=== PATIENT | male | born 1955 | race Caucasian/White ===

== ENCOUNTER 2018-10-11 17:04 | Inpatient (IN) | payer OTHER ==
--- NOTE | 2018-10-11 19:22 | CT ---
EXAMINATION TYPE: CT brain wo con DATE OF EXAM: 10/11/2018 COMPARISON: None HISTORY: right sided facial weakness, numbness CT DLP: 1150.4 mGycm Automated exposure control for dose reduction was used. FINDINGS: There is patchy hypodensity in the periventricular white matter. There is no mass effect nor midline shift. There is no sign of intracranial hemorrhage. There is mild cerebral atrophy. IMPRESSION: MILD ATROPHY AND CHRONIC WHITE MATTER CHANGES. NO ACUTE INTRACRANIAL ABNORMALITY.
--- NOTE | 2018-10-11 19:30 | ED ---
General Adult HPI - General Chief complaint: Neuro Symptoms/Deficit Stated complaint: Numbness in face Time Seen by Provider: 10/11/18 18:43 Source: patient Mode of arrival: ambulatory Limitations: no limitations - History of Present Illness Initial comments: This a 63-year-old male with past medical history of hyperlipidemia presenting today for chief complaint of right-sided facial weakness and droop. She states that yesterday morning around 9 AM he woke up and noticed that he was not able to tightly close his right eye and noticed to cough as well, and drooling at times. Patient denies any difficulty speaking, gait ataxia, memory changes, difficulty or tingling senses, upper or lower extremity weakness, headaches, trouble head, dizziness, nausea, vomiting, chest pain, shortness breath, palpitations, or any other associated symptoms. Patient that this may go away so he did not present to the emergency department. When symptoms persisted today he presented for evaluation. Patient does admit to numbness of the lips, denies any other sensation deficits. Patient denies any visual changes or diplopia. 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 Remainder of ROS was negative, patient denies any recent fever, chills, shortness of breath, chest pain, back pain, abdominal pain, nausea or vomiting, numbness or tingling , dysuria or hematuria, constipation or diarrhea, headaches or visual changes, or any other complaints . Upon arrival patient appears well, and ambulating without difficulty. - Related Data Allergies Allergy/AdvReac Type Severity Reaction Status Date / Time No Known Allergies Allergy Verified 10/11/18 17:17 Review of Systems ROS Statement: Those systems with pertinent positive or pertinent negative responses have been documented in the HPI. ROS Other: All systems not noted in ROS Statement are negative. Constitutional: Denies: fever, chills, night sweats Eyes: Denies: eye pain ENT: Denies: ear pain, throat pain Respiratory: Denies: cough, dyspnea, wheezes, hemoptysis, stridor Cardiovascular: Denies: chest pain, palpitations Endocrine: Denies: fatigue Gastrointestinal: Denies: abdominal pain, nausea, vomiting, diarrhea, constipation Genitourinary: Denies: urgency, dysuria, frequency Musculoskeletal: Denies: back pain Skin: Denies: rash, lesions Neurological: Reports: paresthesias, other (right sided facial droop). Denies: headache, weakness, numbness, confusion, abnormal gait, vertigo Past Medical History Past Medical History: Cancer, Hyperlipidemia Additional Past Medical History / Comment(s): prostate cancer- removed prostate History of Any Multi-Drug Resistant Organisms: None Reported Past Surgical History: Hernia Repair, Orthopedic Surgery Additional Past Surgical History / Comment(s): prostate removal, cornea transplant Past Psychological History: No Psychological Hx Reported Smoking Status: Former smoker Past Alcohol Use History: Daily Past Drug Use History: Marijuana General Exam - General Exam Comments Initial Comments: General: The patient is awake and alert, in no distress, and does not appear acutely ill. Noted facial droop Eye: +3 mm left pupils,left is slit like (corneal transplant) round and reactive to light, extra-ocular movements are intact. No G gaze. No nystagmus. There is normal conjunctiva bilaterally. No signs of icterus. Ears, nose, mouth and throat: There are moist mucous membranes and no oral lesions. Neck: The neck is supple, there is no tenderness or JVD. Cardiovascular: There is a regular rate and rhythm. No murmur, rub or gallop is appreciated. Respiratory: Lungs are clear to auscultation, respirations are non-labored, breath sounds are equal. No wheezes, stridor, rales, or rhonchi. Gastrointestinal: Soft, non-distended, non-tender abdomen without masses or organomegaly noted. There is no rebound or guarding present. No CVA tenderness. Bowel sounds are unremarkable. Musculoskeletal: Normal ROM, no tenderness. Strength 5/5. Sensation intact. Pulses equal bilaterally 2+. Neurological: A&O x 3. CN II-XII intact with acception from right sided facial droop from corner of mouth and with closer of right eye, memory intact to immediately, intermediate and termite technician recall. Able to follow simple verbal. Able to name a common object. High quality, labial (pa) and lingual (la) speech. Low quality posterior pharynx/larynx (ga) voice sounds. Able to express general knowledge. No hemineglect or inattention noted. Finger agnosia (-) and spatially oriented. Light touch and temperature sensation present over the face , chest, abdomen, back, UE bilaterally, and LE bilaterally. Able to localize point during point localization b/l and extinction. No visible bulk atrophy, hypertrophy, fasciculations, or myoclonus of the UE or LE b/l. Full PROM in UE and LE b/l. Bilateral muscle strength 5/5 for the following muscles: deltoid, biceps, triceps, brachioradialis, wrist extensors/flexor, hip flexor, hip abductors/adductors, hamstrings, quadriceps, feet dorsiflexors/plantar flexors. Finger to nose, finger to the examiners finger, and heel to jain coordinated and accurate b/l. Coordinated and even demonstration of hand flip, finger to thumb, and toe tap b/l. +2 patellar, and Achilles DTR b/l. (-) primitive reflexes. Gait is coordinated and even in stride with tandem, toe and heel walk. Maintains balance with monopedal stance. (-) Romberg. (-) pronator drift. No nuchal rigidity. (-) Brudzinskis and Kernig signs. Skin: Skin is warm and dry and no rashes or lesions are noted. Psychiatric: Cooperative, appropriate mood & affect, normal judgment. Limitations: no limitations Course Vital Signs 10/11/18 10/11/18 10/11/18 17:13 20:45 22:36 Temperature 97.6 F Pulse Rate 66 61 Respiratory 18 18 Rate Blood Pressure 185/77 172/85 168/86 O2 Sat by Pulse 96 98 97 Oximetry 10/11/18 10/11/18 22:40 22:50 Temperature Pulse Rate Respiratory Rate Blood Pressure 168/86 175/83 O2 Sat by Pulse 96 96 Oximetry EKG Findings - EKG Comments: EKG Findings:: A 12-lead EKG was performed and shows the following: Rate is 51bpm, and rhythm is normal sinus. There are normal QRS complexes and normal R- wave progression. ST segments have no elevation or depression, and AK segments appear normal. Appears to be normal EKG was sinus bradycardia Medical Decision Making - Medical Decision Making Patient's symptoms began over 24 hours ago. There is noted right-sided facial droop at the corner of the mouth as well as ptosis of the right eye with decreased ability to tightly close right eye. Forehead spared. Remainder of neurological exam no other focal neurological deficits. Patient does admit to paresthesias of the right side of lip. EKG revealed sinus bradycardia. CXR (-) . Laboratory studies within acceptable limits. No audible carotid artery bruits. Patient appears well. CT without contrast negative. ASA given. I feel patient should be admitted for evaluation of possible CVA. Patient is agreeable to admission. Pt was admitted after this the case at length with Dr. Gonzáles in her evaluated patient [id number]. Dr. Gonzáles agrees with impression and plan. Patient was admitted after Dr. Gonzáles spoke with admitting provider. No further orders at this time. Pt transferred to floor in stable condition, patient placed on telemetry. No further orders from a provider at this time. - Lab Data Result diagrams: 10/11/18 19:40 10/11/18 19:40 Lab Results 10/11/18 10/11/18 10/11/18 Range/Units 19:40 19:40 19:40 WBC 10.2 (3.8-10.6) k/uL RBC 4.12 L (4.30-5.90) m/uL Hgb 12.8 L (13.0-17.5) gm/dL Hct 39.4 (39.0-53.0) % MCV 95.6 (80.0-100.0) fL MCH 31.1 (25.0-35.0) pg MCHC 32.5 (31.0-37.0) g/dL RDW 15.4 (11.5-15.5) % Plt Count 276 (150-450) k/uL Neutrophils % 66 % Lymphocytes % 16 % Monocytes % 9 % Eosinophils % 4 % Basophils % 1 % Neutrophils # 6.8 (1.3-7.7) k/uL Lymphocytes # 1.6 (1.0-4.8) k/uL Monocytes # 1.0 (0-1.0) k/uL Eosinophils # 0.4 (0-0.7) k/uL Basophils # 0.1 (0-0.2) k/uL PT (9.0-12.0) sec INR (<1.2) APTT (22.0-30.0) sec Sodium 138 (137-145) mmol/L Potassium 4.5 (3.5-5.1) mmol/L Chloride 106 (98-107) mmol/L Carbon Dioxide 22 (22-30) mmol/L Anion Gap 10 mmol/L BUN 8 L (9-20) mg/dL Creatinine 0.74 (0.66-1.25) mg/dL Est GFR (CKD-EPI)AfAm >90 (>60 ml/min/1.73 sqM) Est GFR (CKD-EPI)NonAf >90 (>60 ml/min/1.73 sqM) Glucose 106 H (74-99) mg/dL Calcium 9.7 (8.4-10.2) mg/dL Total Bilirubin 0.4 (0.2-1.3) mg/dL AST 21 (17-59) U/L ALT 21 (21-72) U/L Alkaline Phosphatase 71 (38-126) U/L Total Creatine Kinase 68 (55-170) U/L CK-MB (CK-2) 0.9 (0.0-2.4) ng/mL CK-MB (CK-2) Rel Index 1.3 Troponin I <0.012 (0.000-0.034) ng/mL Total Protein 7.6 (6.3-8.2) g/dL Albumin 4.2 (3.5-5.0) g/dL Triglycerides (<150) mg/dL Cholesterol (<200) mg/dL LDL Cholesterol, Calc (0-99) mg/dL HDL Cholesterol (40-60) mg/dL 10/11/18 10/11/18 Range/Units 19:40 19:40 WBC (3.8-10.6) k/uL RBC (4.30-5.90) m/uL Hgb (13.0-17.5) gm/dL Hct (39.0-53.0) % MCV (80.0-100.0) fL MCH (25.0-35.0) pg MCHC (31.0-37.0) g/dL RDW (11.5-15.5) % Plt Count (150-450) k/uL Neutrophils % % Lymphocytes % % Monocytes % % Eosinophils % % Basophils % % Neutrophils # (1.3-7.7) k/uL Lymphocytes # (1.0-4.8) k/uL Monocytes # (0-1.0) k/uL Eosinophils # (0-0.7) k/uL Basophils # (0-0.2) k/uL PT 9.9 (9.0-12.0) sec INR 0.9 (<1.2) APTT 23.9 (22.0-30.0) sec Sodium (137-145) mmol/L Potassium (3.5-5.1) mmol/L Chloride (98-107) mmol/L Carbon Dioxide (22-30) mmol/L Anion Gap mmol/L BUN (9-20) mg/dL Creatinine (0.66-1.25) mg/dL Est GFR (CKD-EPI)AfAm (>60 ml/min/1.73 sqM) Est GFR (CKD-EPI)NonAf (>60 ml/min/1.73 sqM) Glucose (74-99) mg/dL Calcium (8.4-10.2) mg/dL Total Bilirubin (0.2-1.3) mg/dL AST (17-59) U/L ALT (21-72) U/L Alkaline Phosphatase (38-126) U/L Total Creatine Kinase (55-170) U/L CK-MB (CK-2) (0.0-2.4) ng/mL CK-MB (CK-2) Rel Index Troponin I (0.000-0.034) ng/mL Total Protein (6.3-8.2) g/dL Albumin (3.5-5.0) g/dL Triglycerides 118 (<150) mg/dL Cholesterol 201 H (<200) mg/dL LDL Cholesterol, Calc 94 (0-99) mg/dL HDL Cholesterol 83 H (40-60) mg/dL Disposition Clinical Impression: Facial droop Disposition: ADMITTED IP TO THIS HOSP Condition: Stable Is patient prescribed a controlled substance at d/c from ED?: No Time of Disposition: 19:30 Decision to Admit Reason: Admit from EC Decision Date: 10/11/18 Decision Time: 19:30
[2018-10-11] MEDS ORDERED: ASPIRIN 325 MG TAB PO STA (19:36)
[2018-10-11] MEDS ORDERED: SODIUM CHLORIDE 0.9% 1,000 ML IV SCH (19:45)
[2018-10-11 20:15] LABS: INR 0.9 (<1.2); Partial Thromboplastin Time 23.9 sec (22.0-30.0); Prothrombin Time 9.9 sec (9.0-12.0)
[2018-10-11 20:19] LABS: Basophils # (A) 0.1 k/uL (0-0.2); Basophils % (A) 1 %; Eosinophils # (A) 0.4 k/uL (0-0.7); Eosinophils % (A) 4 %; HCT 39.4 % (39.0-53.0); HGB 12.8 gm/dL (13.0-17.5); Lymphocytes # (A) 1.6 k/uL (1.0-4.8); Lymphocytes % (A) 16 %; MCH 31.1 pg (25.0-35.0); MCHC 32.5 g/dL (31.0-37.0); MCV 95.6 fL (80.0-100.0); Mean Platelet Volume 7.3; Monocytes % (A) 9 %; Neutrophils # (A) 6.8 k/uL (1.3-7.7); Neutrophils % (A) 66 %; Platelet Count 276 k/uL (150-450); RBC 4.12 m/uL (4.30-5.90); RDW 15.4 % (11.5-15.5); WBC 10.2 k/uL (3.8-10.6)
[2018-10-11 20:20] LABS: ALT 21 U/L (21-72); AST 21 U/L (17-59); Albumin 4.2 g/dL (3.5-5.0); Alkaline Phosphatase 71 U/L (38-126); Anion Gap 10 mmol/L; Blood Urea Nitrogen 8 mg/dL (9-20); Calcium 9.7 mg/dL (8.4-10.2); Carbon Dioxide 22 mmol/L (22-30); Chloride 106 mmol/L (98-107); Creatine Kinase 68 U/L (55-170); Glucose 106 mg/dL (74-99); Potassium 4.5 mmol/L (3.5-5.1); Sodium 138 mmol/L (137-145); Total Bilirubin 0.4 mg/dL (0.2-1.3); Total Protein 7.6 g/dL (6.3-8.2)
--- NOTE | 2018-10-11 20:31 | XR ---
EXAMINATION TYPE: XR chest 2V DATE OF EXAM: 10/11/2018 COMPARISON: NONE HISTORY: Altered mental status TECHNIQUE: Frontal and lateral views of the chest are obtained. FINDINGS: Heart and mediastinum are normal. Lungs are clear. Diaphragm is normal. Bony thorax is int act. There is minimal pleural scarring at the lung apices. IMPRESSION: No active cardiopulmonary disease. Normal heart.
[2018-10-11 20:32] LABS: Creatine Kinase MB 0.9 ng/mL (0.0-2.4); Troponin I <0.012 ng/mL (0.000-0.034)
[2018-10-11 22:39] LABS: Cholesterol 201 mg/dL (<200); HDL Cholesterol 83 mg/dL (40-60); LDL Cholesterol,Calculated 94 mg/dL (0-99); Triglycerides 118 mg/dL (<150)
[2018-10-11 23:40] VITALS: BMI 25.9
[2018-10-12 01:03] VITALS: TEMP 98.5
[2018-10-12 06:39] VITALS: BP 163/72; PULSE 56
[2018-10-12 09:27] VITALS: RESP 17
--- NOTE | 2018-10-12 10:15 | US ---
EXAMINATION TYPE: US carotid duplex BILAT DATE OF EXAM: 10/12/2018 COMPARISON: NONE CLINICAL HISTORY: Stenosis. Right facial numbness EXAM MEASUREMENTS: RIGHT: Peak Systolic Velocity (PSV) cm/sec ----- Right CCA: 119.1 ----- Right ICA: 109.7 ----- Right ECA: 81.4 ICA/CCA ratio: 0.9 RIGHT: End Diastole cm/sec ----- Right CCA: 14.4 ----- Right ICA: 32.1 ----- Right ECA: 5.0 LEFT: Peak Systolic Velocity (PSV) cm/sec ----- Left CCA: 84.5 ----- Left ICA: 95.1 ----- Left ECA: 105.7 ICA/CCA ratio: 1.1 LEFT: End Diastole cm/sec ----- Left CCA: 14.4 ----- Left ICA: 26.3 ----- Left ECA: 9.1 VERTEBRALS (direction of flow): Right Vertebral: Antegrade Left Vertebral: Antegrade Rhythm: Normal Grayscale, color Doppler, spectral Doppler imaging performed of the carotid arteries. Moderate plaque bilaterally. No evidence of significant stenosis Waveform analysis does not show significant stenosis of the proximal internal carotid arteries. IMPRESSION: No hemodynamic significant stenosis of the proximal internal carotid arteries bilaterall y by Doppler criteria, an indirect measurement of carotid stenosis
[2018-10-12] MEDS ORDERED: predniSONE 20 MG TAB PO STA (10:18)
--- NOTE | 2018-10-12 11:33 | P.HPIM ---
History of Present Illness 63-year-old gentleman came in with compensative right-sided facial paralysis, drooling and unable to close the right eye completely. Patient doesn't have any other weakness patient is comparing of some numbness in the teeth on the right side patient. Patient denied any speech abnormality gait abnormality. Patient denied any fever chills headache nausea vomiting. Patient denied any ear pain denied any hearing problems or shingles. Patient had right-sided cardiac transplant in the past because of which patient is on acyclovir at this time. Patient doesn't take any antiplatelet therapy at home patient does have history of hyperlipidemia. Patient drinks almost every day about 5 beers a day patient is not willing to quit alcohol in spite of extensive counseling. Patient never had any withdrawals in the past Review of Systems REVIEW OF SYSTEMS: CONSTITUTIONAL: No fever, no malaise, no fatigue. HEENT: No recent visual problems or hearing problems. Denied any sore throat. CARDIOVASCULAR: No chest pain, orthopnea, PND, no palpitations, no syncope. PULMONARY: No shortness of breath, no cough, no hemoptysis. GASTROINTESTINAL: No diarrhea, no nausea, no vomiting, no abdominal pain. NEUROLOGICAL: As mentioned in HPI HEMATOLOGICAL: Denies any bleeding or petechiae. GENITOURINARY: Denies any burning micturition, frequency, or urgency. MUSCULOSKELETAL/RHEUMATOLOGICAL: Denies any joint pain, swelling, or any muscle pain. ENDOCRINE: Denies any polyuria or polydipsia. The rest of the 14-point review of systems is negative. Past Medical History Past Medical History: Cancer, Hyperlipidemia Additional Past Medical History / Comment(s): prostate cancer- removed prostate History of Any Multi-Drug Resistant Organisms: None Reported Past Surgical History: Hernia Repair, Orthopedic Surgery Additional Past Surgical History / Comment(s): prostate removal, cornea transplant Past Psychological History: No Psychological Hx Reported Smoking Status: Former smoker Past Alcohol Use History: Daily Past Drug Use History: Marijuana Medications and Allergies Home Medications Medication Instructions Recorded Confirmed Type Aspirin 81 mg PO DAILY #30 chewable 10/12/18 Rx Brinzolamide/Brimonidine Tart 1 drop BOTH EYES BID 10/12/18 10/12/18 History [Simbrinza 1%-0.2% Eye Drops] Flunisolide Nasal [place] [Nasalide] 2 spray EA NOSTRIL DAILY 10/12/18 10/12/18 History HYDROcodone/APAP 10-325MG [Price 1 tab PO QID PRN 10/12/18 10/12/18 History 10-325] Latanoprost/Pf [Latanoprost 0.005% 1 drop BOTH EYES HS 10/12/18 10/12/18 History Eye Drop] Loperamide [Imodium] 2 mg PO DAILY PRN 10/12/18 10/12/18 History Pravastatin Sodium [Pravachol] 20 mg PO HS 10/12/18 10/12/18 History Sildenafil Citrate [Viagra] 100 mg PO ONCE 10/12/18 10/12/18 History Timolol Maleate [Timolol Maleate 1 applic BOTH EYES BID 10/12/18 10/12/18 History 0.5% Ophth Gel] methylPREDNISolone Dose Pack 4 mg PO DIRECTED #21 package 10/12/18 Rx [Medrol Dose Pack] prednisoLONE ACETATE 1% OPHTH 1 drops RIGHT EYE DAILY 10/12/18 10/12/18 History [Pred Forte 1%] valACYclovir HCL [Valacyclovir] 1,000 mg PO Q8HR #21 tab 10/12/18 Rx Allergies Allergy/AdvReac Type Severity Reaction Status Date / Time No Known Allergies Allergy Verified 10/12/18 09:02 Physical Exam Vitals: Vital Signs Temp Pulse Pulse Resp BP BP Pulse Ox 10/12/18 09:18 55 L 17 97 10/12/18 04:00 56 L 16 163/72 98 10/12/18 00:00 98.5 F 66 16 160/73 98 10/11/18 22:50 175/83 96 10/11/18 22:40 168/86 96 10/11/18 22:36 168/86 97 10/11/18 20:45 61 18 172/85 98 10/11/18 17:13 97.6 F 66 18 185/77 96 Intake and Output 10/11/18 10/12/18 10/12/18 22:59 06:59 14:59 Intake Total 118 Balance 118 Intake: Oral 118 Other: # Voids 1 Weight 79.5 kg 79.5 kg PHYSICAL EXAMINATION: GENERAL: The patient is alert and oriented x3, not in any acute distress. Well developed, well nourished. HEENT: Pupils are round and equally reacting to light. EOMI. No scleral icterus. No conjunctival pallor. Normocephalic, atraumatic. No pharyngeal erythema. No thyromegaly. CARDIOVASCULAR: S1 and S2 present. No murmurs, rubs, or gallops. PULMONARY: Chest is clear to auscultation, no wheezing or crackles. ABDOMEN: Soft, nontender, nondistended, normoactive bowel sounds. No palpable organomegaly. MUSCULOSKELETAL: No joint swelling or deformity. EXTREMITIES: No cyanosis, clubbing, or pedal edema. 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 Results CBC & Chem 7: 10/11/18 19:40 10/11/18 19:40 Labs: Abnormal Lab Results - Last 24 Hours (Table) 10/11/18 10/11/18 10/11/18 Range/Units 19:40 19:40 19:40 RBC 4.12 L (4.30-5.90) m/uL Hgb 12.8 L (13.0-17.5) gm/dL BUN 8 L (9-20) mg/dL Glucose 106 H (74-99) mg/dL Cholesterol 201 H (<200) mg/dL HDL Cholesterol 83 H (40-60) mg/dL Thrombosis Risk Factor Assmnt - Choose All That Apply Any of the Below Risk Factors Present?: Yes Each Factor Represents 1 point: Obesity (BMI >25) Other Risk Factors: Yes Each Risk Factor Represents 2 Points: Age 61-74 years Other congenital or acquired thrombophilia - If yes, enter type in comment: No Thrombosis Risk Factor Assessment Total Risk Factor Score: 3 Thrombosis Risk Factor Assessment Level: Moderate Risk Assessment and Plan Plan: -Right-sided facial weakness patient is admitted to rule out TIA CT of the head is negative and patient's carotid Doppler is essentially negative patient will be started on aspirin patient has right-sided Flowers's palsy patient will be discharged on weaning doses of steroids and valacyclovir 3 times a day for to be can follow with neurology as an outpatient patient has 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 I do not believe patient has TIA no further workup is warranted at this time -History of alcohol abuse patient is not willing to quit alcohol in spite of extensive counseling. -Hyperlipidemia continue statin -Unable to completely close his eyes patient already has Lacri-Lube patient was asked to use Lacri-Lube while sleeping patient also has prednisone eyedrops intimal eyedrops which she will continue a he's been using the since his cardiac transplant
--- NOTE | 2018-10-12 11:33 | P.DS ---
Providers Date of admission: 10/11/18 21:14 Attending physician: Albin Walker MD Consults: 10/11/18 19:37 Consult Physician Urgent Consulting Provider: Kishan Hwang Consult Reason/Comments: facial droop Do you want consulting provider notified?: Yes Primary care physician: [facility] Course: Please refer to my HPI Patient Condition at Discharge: Stable Plan - Discharge Summary Discharge Rx Participant: No New Discharge Prescriptions: New Aspirin 81 mg PO DAILY #30 chewable methylPREDNISolone Dose Pack [Medrol Dose Pack] 4 mg PO DIRECTED #21 package valACYclovir HCL [Valacyclovir] 1,000 mg PO Q8HR #21 tab Continue Flunisolide Nasal [place] [Nasalide] 2 spray EA NOSTRIL DAILY HYDROcodone/APAP 10-325MG [[place] 10-325] 1 tab PO QID PRN PRN Reason: Pain Brinzolamide/Brimonidine Tart [Simbrinza 1%-0.2% Eye Drops] 1 drop BOTH EYES BID Latanoprost/Pf [Latanoprost 0.005% Eye Drop] 1 drop BOTH EYES HS Sildenafil Citrate [Viagra] 100 mg PO ONCE Pravastatin Sodium [Pravachol] 20 mg PO HS Loperamide [Imodium] 2 mg PO DAILY PRN PRN Reason: Constipation prednisoLONE ACETATE 1% OPHTH [Pred Forte 1%] 1 drops RIGHT EYE DAILY Timolol Maleate [Timolol Maleate 0.5% Ophth Gel] 1 applic BOTH EYES BID Discontinued Acyclovir 400 mg PO DIRECTED Discharge Medication List Aspirin 81 mg PO DAILY #30 chewable 10/12/18 [Rx] Brinzolamide/Brimonidine Tart [Simbrinza 1%-0.2% Eye Drops] 1 drop BOTH EYES BID 10/12/18 [History] Flunisolide Nasal [place] [Nasalide] 2 spray EA NOSTRIL DAILY 10/12/18 [History] HYDROcodone/APAP 10-325MG [[place] 10-325] 1 tab PO QID PRN 10/12/18 [History] Latanoprost/Pf [Latanoprost 0.005% Eye Drop] 1 drop BOTH EYES HS 10/12/18 [ History] Loperamide [Imodium] 2 mg PO DAILY PRN 10/12/18 [History] Pravastatin Sodium [Pravachol] 20 mg PO HS 10/12/18 [History] Sildenafil Citrate [Viagra] 100 mg PO ONCE 10/12/18 [History] Timolol Maleate [Timolol Maleate 0.5% Ophth Gel] 1 applic BOTH EYES BID [History] methylPREDNISolone Dose Pack [Medrol Dose Pack] 4 mg PO DIRECTED #21 package 10/12/18 [Rx] prednisoLONE ACETATE 1% OPHTH [Pred Forte 1%] 1 drops RIGHT EYE DAILY 10/12/18 [ History] valACYclovir HCL [Valacyclovir] 1,000 mg PO Q8HR #21 tab 10/12/18 [Rx] Follow up Appointment(s)/Referral(s): Kishan Hwang MD [STAFF PHYSICIAN] - As Needed (Per Dr Hafsa Hwang, she wants to see him before appointment is made. ) [facility],Clinic [Primary Care Provider] - 10/24/18 2:30 pm Patient Instructions/Handouts: Transient Ischemic Attack (DC), Flowers Palsy (DC) Discharge Disposition: HOME SELF-CARE
== END 2018-10-12 13:56 | disposition home health service (06) | DRG 74 ==
LOC: EC 17:04 → 3SCARD 21:14
PROVIDERS: ADMIT Internal Medicine; ATTEND Internal Medicine
DX: G51.0 Bell's palsy (principal); E78.5 Hyperlipidemia, unspecified; H02.401 Unspecified ptosis of right eyelid; Z79.82 Long term (current) use of aspirin; Z85.46 Personal history of malignant neoplasm of prostate; Z87.891 Personal history of nicotine dependence; Z94.7 Corneal transplant status; F10.10 Alcohol abuse, uncomplicated; Z71.41 Alcohol abuse counseling and surveillance of alcoholic
CPT/HCPCS: 36415; 70450; 71046; 80053; 80061; 82550; 82553; 84484; 85025; 85610; 85730; 93005; 93880; 99285

== ENCOUNTER 2019-07-09 11:17 | Emergency (ER) | payer OTHER, MEDICARE ==
[2019-07-09 11:38] VITALS: TEMP 98
[2019-07-09] MEDS ORDERED: KETOROLAC 60 MG/2 ML VIAL IM STA (12:26)
--- NOTE | 2019-07-09 12:43 | XR ---
Right ankle HISTORY: Swelling, erythema, pain 3 views of the right ankle Soft tissue swelling is noted. Bone mineralization, joint spaces and alignment are maintained. No fracture or dislocation. IMPRESSION: Soft tissue swelling. Correlate for cellulitis, edema.
--- NOTE | 2019-07-09 13:07 | ED ---
General Adult HPI - General Chief complaint: Extremity Injury, Lower Stated complaint: ankle swelling Time Seen by Provider: 07/09/19 12:16 Source: patient, RN notes reviewed, old records reviewed Mode of arrival: ambulatory Limitations: no limitations - History of Present Illness Initial comments: Patient is a 64-year-old female presents emergency department today for complaint of onset of redness and swelling over the posterior right ankle. Patient reports that he started noticed the pain and symptoms yesterday. Patient states he thought he may be read by something but denies any known exposure breaks in the skin. Patient states that he has tenderness or swelling. Patient states that he has had no fevers or chills. Denies any history of r esistant skin infections. At this time Patient states he has got no pain within the foot. - Related Data Home Medications Medication Instructions Recorded Confirmed Brinzolamide/Brimonidine Tart 1 drop BOTH EYES BID 10/12/18 10/12/18 [Simbrinza 1%-0.2% Eye Drops] Flunisolide Nasal [place] [Nasalide] 2 spray EA NOSTRIL DAILY 10/12/18 10/12/18 HYDROcodone/APAP 10-325MG [[place] 1 tab PO QID PRN 10/12/18 10/12/18 10-325] Latanoprost/Pf [Latanoprost 0.005% 1 drop BOTH EYES HS 10/12/18 10/12/18 Eye Drop] Loperamide [Imodium] 2 mg PO DAILY PRN 10/12/18 10/12/18 Pravastatin Sodium [Pravachol] 20 mg PO HS 10/12/18 10/12/18 Sildenafil Citrate [Viagra] 100 mg PO ONCE 10/12/18 10/12/18 Timolol Maleate [Timolol Maleate 1 applic BOTH EYES BID 10/12/18 10/12/18 0.5% Ophth Gel] prednisoLONE ACETATE 1% OPHTH 1 drops RIGHT EYE DAILY 10/12/18 10/12/18 [Pred Forte 1%] Previous Rx's Medication Instructions Recorded Aspirin 81 mg PO DAILY #30 chewable 10/12/18 methylPREDNISolone Dose Pack 4 mg PO DIRECTED #21 package 10/12/18 [Medrol Dose Pack] valACYclovir HCL [Valacyclovir] 1,000 mg PO Q8HR #21 tab 10/12/18 Ibuprofen 600 mg PO TID #30 tablet 07/09/19 Sulfamethox-Tmp 800-160Mg [Bactrim 2 tab PO Q12HR #40 tab 07/09/19 DS 800-160 mg] Allergies Allergy/AdvReac Type Severity Reaction Status Date / Time No Known Allergies Allergy Verified 07/09/19 12:19 Review of Systems ROS Statement: Those systems with pertinent positive or pertinent negative responses have been documented in the HPI. ROS Other: All systems not noted in ROS Statement are negative. Past Medical History Past Medical History: Cancer, Hyperlipidemia Additional Past Medical History / Comment(s): prostate cancer- removed prostate History of Any Multi-Drug Resistant Organisms: None Reported Past Surgical History: Hernia Repair, Orthopedic Surgery Additional Past Surgical History / Comment(s): prostate removal, cornea transplant Past Psychological History: No Psychological Hx Reported Smoking Status: Former smoker Past Alcohol Use History: Daily Past Drug Use History: Marijuana General Exam - General Exam Comments Initial Comments: 64-year-old male. Alert and oriented. No distress. Limitations: no limitations General appearance: alert Head exam: Present: atraumatic, normocephalic, normal inspection Eye exam: Present: normal appearance, PERRL, EOMI. Absent: scleral icterus, conjunctival injection, periorbital swelling ENT exam: Present: normal exam, mucous membranes moist Neck exam: Present: normal inspection. Absent: tenderness, meningismus, lymphadenopathy Respiratory exam: Present: normal lung sounds bilaterally. Absent: respiratory distress, wheezes, rales, rhonchi, stridor Cardiovascular Exam: Present: regular rate, normal rhythm, normal heart sounds. Absent: systolic murmur, diastolic murmur, rubs, gallop, clicks GI/Abdominal exam: Present: soft, normal bowel sounds. Absent: distended, tenderness, guarding, rebound, rigid Extremities exam: Present: normal inspection, full ROM, normal capillary refill, other ( has area of erythema and swelling over the lateral malleolus of the right ankle. The erythema extends over the posterior portion of the ankle. Some pain with range of motion. No Tenderness or swelling.). Absent: tenderness, pedal edema, joint swelling, calf tenderness Back exam: Present: normal inspection Neurological exam: Present: alert, oriented X3, CN II-XII intact Psychiatric exam: Present: normal affect, normal mood Skin exam: Present: warm, dry, intact, normal color. Absent: rash Course Vital Signs 07/09/19 11:34 Temperature 98.0 F Pulse Rate 65 Respiratory 17 Rate Blood Pressure 142/68 O2 Sat by Pulse 99 Oximetry Medical Decision Making - Medical Decision Making Kimberly 64-year-old male presents today with right ankle redness and swelling o nset of symptoms yesterday. Concern for possible cellulitis over the lateral malleolus. Also discussed possibility of gouty arthritis. Patient will be started on anti-inflammatory medication and also to cover for sialitis with antibiotics. We'll clinical suspicion for DVT with tenderness or erythema extending up the leg. Patient has been advised to monitor the area of redness and swelling. If this worsens her pain worsens he should return for reevaluation. Discussing to follow-up with his PCP as well. All questions were answered return parameters were discussed. - Radiology Data Radiology results: report reviewed X-ray of the ankle shows soft tissue swelling. Correlating for cellulitis and edema. Disposition Clinical Impression: Right ankle pain, Ankle cellulitis Disposition: HOME SELF-CARE Condition: Good Instructions (If sedation given, give patient instructions): Cellulitis (ED), Gout (ED) Additional Instructions: Please use medication as discussed. Please follow up with family doctor if symptoms have not improved over the next two days. Please return to the emergency room if your symptoms increase or worsen or for any other concerns. Prescriptions: Sulfamethox-Tmp 800-160Mg [Bactrim DS 800-160 mg] 2 tab PO Q12HR #40 tab Ibuprofen 600 mg PO TID #30 tablet Is patient prescribed a controlled substance at d/c from ED?: No Referrals: [facility] [Primary Care Provider] - 1-2 days Time of Disposition: 13:04
[2019-07-09 13:34] VITALS: BP 123/76; PULSE 70; RESP 16
== END 2019-07-09 13:34 | disposition home or self-care (01) ==
LOC: EC 11:17
DX: L03.115 Cellulitis of right lower limb (principal); M25.571 Pain in right ankle and joints of right foot; E78.5 Hyperlipidemia, unspecified; Z85.46 Personal history of malignant neoplasm of prostate; Z90.79 Acquired absence of other genital organ(s); Z98.890 Other specified postprocedural states; Z87.891 Personal history of nicotine dependence; Z94.7 Corneal transplant status; Z79.899 Other long term (current) drug therapy
CPT/HCPCS: 73610; 99284; 96372; J1885

== ENCOUNTER 2019-10-02 14:38 | Emergency (ER) | payer MEDICARE, OTHER ==
[2019-10-02 14:49] VITALS: BP 150/79; PULSE 74; RESP 18; TEMP 97.9
--- NOTE | 2019-10-02 15:00 | ED ---
Lower Extremity Injury HPI - General Chief Complaint: Extremity Injury, Lower Stated Complaint: Swollen Leg Time Seen by Provider: 10/02/19 14:50 Source: patient Mode of arrival: ambulatory Limitations: no limitations - History of Present Illness Initial Comments: Patient is 64-year-old male presenting to emergency Department with a chief complaint of right lower leg swelling. Patient reports about 4 months ago he was diagnosed with cellulitis on the right lower leg. Patient reports he was given Bactrim but did not fully take the medication because it made him sick. He states that her condition was not fully treated by he had no issues until now. Patient reports while several days ago he developed right lower leg swelling along with erythema along the lateral aspect of the right lower leg and ankle. Patient reports some erythema in the region. Denies any drainage or abscess like formation on the skin. Denies any night sweats fevers or chills. Denies cough shortness of breath or chest pain. Denies taking medication for the symptoms. - Related Data Home Medications Medication Instructions Recorded Confirmed Brinzolamide/Brimonidine Tart 1 drop BOTH EYES BID 10/12/18 07/09/19 [Simbrinza 1%-0.2% Eye Drops] Flunisolide Nasal [place] [Nasalide] 2 spray EA NOSTRIL DAILY 10/12/18 07/09/19 Latanoprost/Pf [Latanoprost 0.005% 1 drop BOTH EYES HS 10/12/18 07/09/19 Eye Drop] Loperamide [Imodium] 2 mg PO DAILY PRN 10/12/18 07/09/19 Pravastatin Sodium [Pravachol] 20 mg PO HS 10/12/18 07/09/19 Sildenafil Citrate [Viagra] 100 mg PO ONCE 10/12/18 07/09/19 Timolol Maleate [Timolol Maleate 1 drop RIGHT EYE BID 10/12/18 07/09/19 0.5% Ophth Gel] prednisoLONE ACETATE 1% OPHTH 1 drops RIGHT EYE DAILY 10/12/18 07/09/19 [Pred Forte 1%] Acyclovir 400 mg PO BID 07/09/19 07/09/19 Loratadine [Claritin] 10 mg PO DAILY 07/09/19 07/09/19 Previous Rx's Medication Instructions Recorded Ibuprofen 600 mg PO TID #30 tablet 07/09/19 Sulfamethox-Tmp 800-160Mg [Bactrim 2 tab PO Q12HR #40 tab 07/09/19 DS 800-160 mg] Cephalexin [Keflex] 500 mg PO Q6HR #40 cap 10/02/19 Allergies Allergy/AdvReac Type Severity Reaction Status Date / Time No Known Allergies Allergy Verified 10/02/19 14:45 Review of Systems ROS Statement: Those systems with pertinent positive or pertinent negative responses have been documented in the HPI. ROS Other: All systems not noted in ROS Statement are negative. Past Medical History Past Medical History: Cancer, Hyperlipidemia Additional Past Medical History / Comment(s): prostate cancer- removed prostate History of Any Multi-Drug Resistant Organisms: None Reported Past Surgical History: Hernia Repair, Orthopedic Surgery Additional Past Surgical History / Comment(s): prostate removal, cornea transplant Past Psychological History: No Psychological Hx Reported Smoking Status: Former smoker Past Alcohol Use History: Daily Past Drug Use History: Marijuana General Exam Limitations: no limitations General appearance: alert, in no apparent distress Head exam: Present: atraumatic, normocephalic, normal inspection Eye exam: Present: normal appearance, PERRL, EOMI Pupils: Present: normal accommodation ENT exam: Present: normal exam Neck exam: Present: normal inspection, full ROM Respiratory exam: Present: normal lung sounds bilaterally Cardiovascular Exam: Present: regular rate, normal rhythm, normal heart sounds Extremities exam: Present: full ROM, tenderness (Mild tenderness along the area of erythema), normal capillary refill, calf tenderness, other (+2 dorsalis pedis and posterior tibialis bilaterally.). Absent: normal inspection (Swelling right lower leg. Similarly changes along the lateral aspect of her lower leg and ankle. No signs of abscess like formations. Some erythema versus the other leg.) Back exam: Present: normal inspection, full ROM Neurological exam: Present: alert, oriented X3 Psychiatric exam: Present: normal affect, normal mood Skin exam: Present: warm, dry, intact, normal color Course Vital Signs 10/02/19 14:45 Temperature 97.9 F Pulse Rate 74 Respiratory 18 Rate Blood Pressure 150/79 O2 Sat by Pulse 96 Oximetry Medical Decision Making - Medical Decision Making Patient is a 54-year-old male presenting to emergency Department with a chief complaint of lower leg swelling. On exam patient has cellulitic changes along the lateral aspect of the right lower leg and ankle. No abscess information. Some temperature change between legs. Patient does have some Tenderness. No shortness of breath cough or chest pain. No previous history of DVT. Doppler ultrasound was performed showing no signs of DVT. Patient given a single dose of Rocephin. Will be discharged with a 10 day course of Keflex. Strict return parameters were thoroughly discussed the patient was understanding and agreeable. Patient advised to follow primary care. Case discussed with physician. Disposition Clinical Impression: Cellulitis of skin Disposition: HOME SELF-CARE Condition: Stable Instructions (If sedation given, give patient instructions): Cellulitis (DC) Additional Instructions: Please take prescribed medication as directed. Please follow with primary care. Please return to emergency department if symptoms worsen. Prescriptions: Cephalexin [Keflex] 500 mg PO Q6HR #40 cap Is patient prescribed a controlled substance at d/c from ED?: No Referrals: [facility] [Primary Care Provider] - 1-2 days Time of Disposition: 15:42
--- NOTE | 2019-10-02 15:33 | US ---
EXAMINATION TYPE: US venous doppler duplex LE RT DATE OF EXAM: 10/02/2019 3:29 PM COMPARISON: NONE CLINICAL HISTORY: Rule out DVT. Right leg swelling and lower leg skin redness SIDE PERFORMED: Right TECHNIQUE: The lower extremity deep venous system is examined utilizing real time linear array sonog cielo with graded compression, doppler sonography and color-flow sonography. VESSELS IMAGED: Common Femoral Vein Deep Femoral Vein Greater Saphenous Vein * Femoral Vein Popliteal Vein Small Saphenous Vein * Proximal Calf Veins (* superficial vessels) Grayscale, color doppler, spectral doppler imaging performed of the deep veins of the right lower ext remity. There is normal flow, compressibility, vascular waveforms. Right Leg: Negative for DVT IMPRESSION: No sonographic evidence of deep venous thrombosis within the right lower extremity.
[2019-10-02] MEDS ORDERED: cefTRIAXone 1,000 MG VIAL (IM USE) IM STA (15:35)
== END 2019-10-02 15:54 | disposition home or self-care (01) ==
LOC: EC 14:38
DX: L03.115 Cellulitis of right lower limb (principal); E78.5 Hyperlipidemia, unspecified; Z85.46 Personal history of malignant neoplasm of prostate; Z87.891 Personal history of nicotine dependence; Z94.7 Corneal transplant status; Z90.79 Acquired absence of other genital organ(s); Z79.52 Long term (current) use of systemic steroids; Z79.899 Other long term (current) drug therapy
CPT/HCPCS: 93971; 99283; 96372; J0696

== ENCOUNTER 2020-08-18 10:44 | Day surgery (SDC) | payer OTHER ==
[2020-08-14 11:25] VITALS: BMI 24.7
[2020-08-18 10:57] VITALS: TEMP 98
[2020-08-18] MEDS ORDERED: LACTATED RINGERS 1,000 ML IV ONE (10:59)
[2020-08-18] MEDS ORDERED: LIDOCAINE 1% (10MG/ML) FOR IV START INTRADERMA ONE (10:59)
[2020-08-18] MEDS ORDERED: PROPOFOL 10 MG/ML 20 ML VIAL IV ONE (11:37)
[2020-08-18] MEDS ORDERED: LIDOCAINE 1% INJ 10MG/ML (20 ML MDV) ONE (11:37)
--- NOTE | 2020-08-18 12:04 | P.PCN ---
Date of Procedure: 08/18/20 Description of Procedure: BRIEF HISTORY: Patient is a 65-year-old male presenting for outpatient colonoscopy for evaluation of a history of colon polyps. Reports last colonoscopy 7 years ago. Denies any change in bowel habits. PROCEDURE PERFORMED: Colonoscopy with polypectomy. PREOPERATIVE DIAGNOSIS: History of colon polyps, reports last colonoscopy 7 years ago. ESTIMATED BLOOD LOSS: Minimal. IV sedation per Anesthesia. PROCEDURE: After informed consent was obtained, the patient, was brought into the endoscopy unit. IV sedation was administered by Anesthesia under continuous monitoring. Digital rectal examination was normal. Initially the Olympus CF-190 flexible video colonoscope was then inserted in the rectum, gradually advanced into the cecum without any difficulty. Careful examination was performed as the scope was gradually being withdrawn. Ileocecal valve and the appendiceal orifice were visualized and appeared normal. Prep was excellent. Mucosa of the cecum, ascending colon, transverse colon, descending colon, sigmoid colon, and rectum appeared normal. 2 diminutive polyps measuring 2 mm in size removed from the ascending colon and sigmoid colon with cold forcep polypectomy. Retroflexion was performed in the rectum and no lesions were seen. The patient tolerated the procedure well. IMPRESSION: 2 diminutive ulcerations with cold forceps from the ascending colon and sigmoid colon. Otherwise, normal-appearing colon from rectum to cecum . RECOMMENDATIONS: Findings of this examination were discussed with the patient and his family. Okay to resume diet. Resume medications. Await pathology from polypectomy. Would recommend repeat colonoscopy in 7 years pending pathology from polypectomy.
[2020-08-18 12:23] VITALS: BP 100/56; PULSE 53; RESP 16
== END 2020-08-18 12:53 | disposition home or self-care (01) ==
LOC: ORWHC2ENDO 10:44
PROVIDERS: ATTEND Internal Medicine
DX: Z12.11 Encounter for screening for malignant neoplasm of colon (principal); D12.2 Benign neoplasm of ascending colon; K63.5 Polyp of colon; Z87.891 Personal history of nicotine dependence; Z88.2 Allergy status to sulfonamides; Z79.899 Other long term (current) drug therapy; Z85.46 Personal history of malignant neoplasm of prostate; Z97.2 Presence of dental prosthetic device (complete) (partial)
CPT/HCPCS: 88305; 45380; J2001; J2704

== ENCOUNTER → 2021-07-15 | Outpatient (CLI) | payer OTHER ==
--- NOTE | 2021-07-15 12:33 | MR ---
EXAMINATION TYPE: MR lumbar spine wo con DATE OF EXAM: 07/15/2021 COMPARISON: HISTORY: Low back pain into rt leg TECHNIQUE: Multiplanar, multisequence images of the lumbar spine were acquired without IV contrast. L1-L2: Normal disc appearance without desiccation. No herniation, protrusion or disc bulging. No ca nal stenosis is present. Foramina are patent bilaterally. L2-L3: Normal disc appearance without desiccation. No herniation, protrusion or disc bulging. No ca nal stenosis is present. Foramina are patent bilaterally. L3-L4: Normal disc appearance without desiccation. No herniation, protrusion or disc bulging. No ca nal stenosis is present. Foramina are patent bilaterally. L4-L5: Moderate disc desiccation with posterior disc bulge. Effacement of the ventral thecal sac resu lting in left greater than right lateral recess stenosis. Bilateral foraminal encroachment. No centra l stenosis. L5-S1: Moderate disc desiccation with posterior disc bulge. Left paracentral disc bulge resulting in left lateral recess stenosis and left-sided foraminal encroachment. No central stenosis or karena disc herniation. Lumbar segments are intact. No paraspinal masses are identified. Conus medullaris has a normal appe arance. Bone marrow signal is heterogenous and this may reflect the underlying bone marrow reconversi on. Correlate with CBC. IMPRESSION: 1. Degenerative disc disease and disc bulging L4-5 and L5-S1. Lateral recess stenosis and foraminal e ncroachment as noted. 2.Bone marrow signal is heterogenous and this may reflect the underlying bone marrow reconversion. Co rrelate with CBC.
== END | disposition home or self-care (01) ==
LOC: RADMRIMAIN 11:45
PROVIDERS: ATTEND Physician Assistant
DX: M51.27 Other intervertebral disc displacement, lumbosacral region (principal); M51.37 Other intervertebral disc degeneration, lumbosacral region; M48.061 Spinal stenosis, lumbar region without neurogenic claudication
CPT/HCPCS: 72148

== ENCOUNTER 2021-09-02 12:50 | Emergency (ER) | payer OTHER ==
[2021-09-02 13:20] VITALS: RESP 20; TEMP 98.3
--- NOTE | 2021-09-02 14:00 | XR ---
EXAMINATION TYPE: XR ribs LT w pa chest xray DATE OF EXAM: 09/02/2021 CLINICAL HISTORY: Chest and left-sided rib pain after fall injury. TECHNIQUE: Single frontal view of the chest is obtained. A frontal and oblique images left-sided ribs . COMPARISON: Chest x-ray October 11, 2018. FINDINGS: There is chronic parenchymal changes bilaterally redemonstrated without suspicious new foc al air space opacity, pleural effusion, or pneumothorax seen. The cardiac silhouette size is stable and upper limits of normal. The osseous structures are intact. Dedicated images of the left-sided ribs show no acute displaced fractures. No suspicious focal osseou s lytic or sclerotic lesions are present. Overlying soft tissue is unremarkable. IMPRESSION: 1. Chronic changes without acute pulmonary process. 2. No acute displaced left-sided rib fractures.
[2021-09-02] MEDS ORDERED: KETOROLAC 30 MG/ML 1 ML VIAL IM STA (14:51)
--- NOTE | 2021-09-02 15:06 | ED ---
General Adult HPI - General Chief complaint: Recheck/Abnormal Lab/Rx Stated complaint: Fall 1x ago, Rib Pain Time Seen by Provider: 09/02/21 13:15 Source: patient, RN notes reviewed, old records reviewed Mode of arrival: ambulatory Limitations: no limitations - History of Present Illness Initial comments: This is a 66-year-old male who presents emergency Department complaining of left-sided rib pain. Patient states he fell a week ago and hit the left side of his ribs and then over the weekend he sneezed and the pain became much worse. Patient states since then the pain is been worse. Patient comes in to be evaluated and make sure nothing else is wrong. Patient states he also fell on his wrist but he has no wrist pain at this time. Patient denies any difficulty breathing or shortness of breath. Patient denies any anterior chest pain. - Related Data Home Medications Medication Instructions Recorded Confirmed Brinzolamide/Brimonidine Tart 1 drop BOTH EYES BID 10/12/18 08/14/20 [Simbrinza 1%-0.2% Eye Drops] Flunisolide Nasal [place] [Nasalide] 2 spray EA NOSTRIL DAILY 10/12/18 08/14/20 Latanoprost/Pf [Latanoprost 0.005% 1 drop BOTH EYES HS 10/12/18 08/14/20 Eye Drop] Pravastatin Sodium [Pravachol] 20 mg PO HS 10/12/18 08/14/20 Sildenafil Citrate [Viagra] 100 mg PO ONCE 10/12/18 08/14/20 Timolol Maleate [timoloL maleate 1 drop RIGHT EYE BID 10/12/18 08/14/20 0.5% Ophth Gel] prednisoLONE ACETATE 1% OPHTH 1 drops RIGHT EYE DAILY 10/12/18 08/14/20 [Pred Forte 1%] Acyclovir 400 mg PO BID 07/09/19 08/14/20 Loratadine [Claritin] 10 mg PO DAILY 07/09/19 08/14/20 Ibuprofen 600 mg PO TID PRN 08/14/20 08/14/20 Previous Rx's Medication Instructions Recorded Ketorolac [Toradol] 10 mg PO Q6HR #15 tab 09/02/21 Allergies Allergy/AdvReac Type Severity Reaction Status Date / Time sulfamethoxazole Allergy passed out Verified 09/02/21 13:14 [From Bactrim] trimethoprim [From Bactrim] Allergy passed out Verified 09/02/21 13:14 Review of Systems ROS Statement: Those systems with pertinent positive or pertinent negative responses have been documented in the HPI. ROS Other: All systems not noted in ROS Statement are negative. Past Medical History Past Medical History: Cancer, Eye Disorder, Hyperlipidemia, Seizure Disorder Additional Past Medical History / Comment(s): prostate cancer- removed prostate, hx. colon polyps, skin cancer, possible one time seizure after shoulder surg-on way home had what looked like a seizure History of Any Multi-Drug Resistant Organisms: None Reported Past Surgical History: Hernia Repair, Orthopedic Surgery, Prostate Surgery Additional Past Surgical History / Comment(s): prostatectomy, right cornea transplant, rotator cuff repair Past Anesthesia/Blood Transfusion Reactions: Previous Problems w/ Anesthesia Additional Past Anesthesia/Blood Transfusion Reaction / Comment(s): one time episode of possible seizure on way home after past shoulder surg.-went back to hospital, they didn't really find anything per pt. Past Psychological History: No Psychological Hx Reported Smoking Status: Former smoker Past Alcohol Use History: Occasional Past Drug Use History: Marijuana General Exam - General Exam Comments Initial Comments: GENERAL: Patient is well-developed and well-nourished. Patient is nontoxic and well- hydrated and is in mild distress. ENT: Neck is soft and supple. No significant lymphadenopathy is noted. Oropharynx is clear. Moist mucous membranes. EYES: The sclera were anicteric and conjunctiva were pink and moist. Eyelids were unremarkable. PULMONARY: Unlabored respirations. Good breath sounds bilaterally. No audible rales rhonchi or wheezing was noted. CARDIOVASCULAR: There is a regular rate and rhythm without any murmurs gallops or rubs. Patient has left-sided rib pain with palpation approximately rib 8-9. ABDOMEN: Soft and nontender with normal bowel sounds. SKIN: Skin is clear with no lesions or rashes and otherwise unremarkable. NEUROLOGIC: Patient is alert and oriented x3. Cranial nerves II through XII are grossly intact. MUSCULOSKELETAL: Normal extremities with adequate strength and full range of motion. PSYCHIATRIC: Normal psychiatric evaluation. Limitations: no limitations Course Vital Signs 09/02/21 13:15 Temperature 98.3 F Pulse Rate 60 Respiratory 20 Rate Blood Pressure 165/73 O2 Sat by Pulse 98 Oximetry Medical Decision Making - Medical Decision Making Chest x-ray shows no acute abnormality. Rib x-ray shows a cracked rib at about the 10th rib there may be a second rib fracture but it's difficult to discern. Patient should take at least 10 deep breaths in and out per hour. Patient should take Toradol as prescribed patient should not take anymore Motrin until the Toradol prescription is finished. Patient can take Tylenol with codeine at night if that helps him sleep that the pain. Disposition Clinical Impression: Rib fractures Disposition: HOME SELF-CARE Condition: Good Instructions (If sedation given, give patient instructions): Rib Fracture (ED) Prescriptions: Ketorolac [Toradol] 10 mg PO Q6HR #15 tab Is patient prescribed a controlled substance at d/c from ED?: No Referrals: [facility],Clinic [Primary Care Provider] - 1-2 days Time of Disposition: 15:24
[2021-09-02] MEDS ORDERED: ACET/COD 300 MG/30 MG STARTER PACK 6 TAB BTL PO STA (15:26)
[2021-09-02 15:57] VITALS: BP 159/78; PULSE 62
== END 2021-09-02 15:57 | disposition home or self-care (01) ==
LOC: EC 12:50
DX: S22.42XA Multiple fractures of ribs, left side, initial encounter for closed fracture (principal); E78.5 Hyperlipidemia, unspecified; G40.909 Epilepsy, unspecified, not intractable, without status epilepticus; F12.90 Cannabis use, unspecified, uncomplicated; Z87.891 Personal history of nicotine dependence; Z79.1 Long term (current) use of non-steroidal anti-inflammatories (NSAID); Z79.899 Other long term (current) drug therapy; Z88.2 Allergy status to sulfonamides; Z88.1 Allergy status to other antibiotic agents; W19.XXXA Unspecified fall, initial encounter
CPT/HCPCS: 71101; 99284; 96372; J1885

== ENCOUNTER → 2022-05-27 | Outpatient (CLI) | payer OTHER ==
--- NOTE | 2022-06-01 07:37 | US ---
EXAMINATION TYPE: US arterial LE single level DATE OF EXAM: 05/27/2022 1:25 PM CLINICAL HISTORY: M79.609 pain in limb RLE. pain in right leg when standing for walking for 9 months. Recent improvement with steroid injection. History of hyperlipidemia. Doppler Waveforms: Right: Multiphasic Left: Multiphasic to monophasic Ankle-Brachial Indices: Right: 1.2 Left: 1.1 Toe Brachial Indices: Right: 0.7 Left: 0.8 IMPRESSION: Normal BARBARA and TBI values.
== END | disposition home or self-care (01) ==
LOC: RADUSWWP 12:41
DX: M79.604 Pain in right leg (principal); E78.5 Hyperlipidemia, unspecified
CPT/HCPCS: 93922

== ENCOUNTER 2022-07-09 14:52 | Emergency (ER) | payer OTHER ==
--- NOTE | 2022-07-09 17:16 | CT ---
EXAMINATION TYPE: CT brain wo con DATE OF EXAM: 07/09/2022 COMPARISON: 10/11/2018 HISTORY: Fall one week ago. C/o equilibrium issues since CT DLP: 1202.[address] of the brain was performed. The ventricles, basal cisterns and sulci overlying the cerebral convexities demonstrate mild enlargem ent. There is no evidence for intracranial hemorrhage or sulcal effacement. There is decreased attenuation about the periventricular white matter and deep white matter of both c erebral hemispheres, compatible with chronic small vessel ischemia. Differential diagnosis does inclu de demyelination. No mass effects are seen.No midline shift. Osseous calvarium is intact. If symptoms persist consider MRI. IMPRESSION: 1. Age related atrophic and chronic small vessel ischemic change without acute intracranial process s een at this time.
[2022-07-09] MEDS ORDERED: MECLIZINE 12.5 MG TAB PO STA (19:41)
[2022-07-09] MEDS ORDERED: SODIUM CHLORIDE 0.9% 1,000 ML IV STA (19:41)
[2022-07-09] MEDS ORDERED: hydrALAZINE HCL 20 MG/ML 1 ML VIAL IVP STA (20:05)
[2022-07-09 20:32] LABS: Basophils # (A) 0.2 k/uL (0-0.2); Basophils % (A) 2 %; Eosinophils # (A) 1.1 k/uL (0-0.7); Eosinophils % (A) 8 %; HGB 13.4 gm/dL (13.0-17.5); Lymphocytes # (A) 2.2 k/uL (1.0-4.8); Lymphocytes % (A) 17 %; MCH 32.9 pg (25.0-35.0); MCHC 33.5 g/dL (31.0-37.0); MCV 98.1 fL (80.0-100.0); Mean Platelet Volume 7.8; Monocytes # (A) 1.3 k/uL (0-1.0); Monocytes % (A) 10 %; Neutrophils # (A) 7.8 k/uL (1.3-7.7); Neutrophils % (A) 61 %; Platelet Count 327 k/uL (150-450); RBC 4.07 m/uL (4.30-5.90); RDW 15.1 % (11.5-15.5); WBC 12.8 k/uL (3.8-10.6)
[2022-07-09 20:41] LABS: Appearance,Urine Clear (Clear); Bilirubin,Urine Negative (Negative); Blood,Urine Negative (Negative); Color,Urine Colorless; Glucose,Urine (UA) Negative (Negative); Ketones,Urine Negative (Negative); Leukocyte Esterase,Urine Negative (Negative); Nitrite,Urine Negative (Negative); Protein,Urine Negative (Negative); Specific Gravity,Urine 1.005 (1.001-1.035); Urobilinogen,Urine <2.0 mg/dL (<2.0)
[2022-07-09 20:45] LABS: ALT 17 U/L (4-49); AST 23 U/L (17-59); African American GFR (CKD) >90 (>60 ml/min/1.73 sqM); Albumin 4.8 g/dL (3.5-5.0); Alkaline Phosphatase 110 U/L (38-126); Anion Gap 14 mmol/L; Blood Urea Nitrogen 5 mg/dL (9-20); Calcium 9.5 mg/dL (8.4-10.2); Carbon Dioxide 23 mmol/L (22-30); Chloride 97 mmol/L (98-107); Glucose 110 mg/dL (74-99); Non-African American GFR(CKD) >90 (>60 ml/min/1.73 sqM); Potassium 4.1 mmol/L (3.5-5.1); Sodium 134 mmol/L (137-145); Total Bilirubin 0.7 mg/dL (0.2-1.3)
[2022-07-09 20:50] LABS: INR 0.9 (<1.2); Prothrombin Time 10.2 sec (9.0-12.0)
--- NOTE | 2022-07-09 20:51 | XR ---
EXAMINATION TYPE: XR chest 2V DATE OF EXAM: 07/09/2022 COMPARISON: 09/02/21 HISTORY: Shortness of breath TECHNIQUE: Frontal and lateral views of the chest are obtained. FINDINGS: Scattered senescent parenchymal changes noted. Hyperinflation compatible with COPD. No evidence for infiltrate. No evidence for atelectasis. Heart size is stable. Mediastinal structures are stable and grossly unremarkable. No evidence for hilar prominence. Degenerative changes dorsal spine. IMPRESSION: 1. No evidence for acute pulmonary disease.
--- NOTE | 2022-07-09 21:49 | ED ---
Dizziness HPI - General Chief Complaint: Dizziness Stated Complaint: Fall-Head/facial injury Time Seen by Provider: 07/09/22 19:32 Source: patient, family Mode of arrival: wheelchair Limitations: no limitations - History of Present Illness Initial Comments: Patient is a 67-year-old male presenting with chief complaint of dizziness. Patient states his symptoms have been ongoing for the last week, they started after a fall at home. Patient states that about one week ago he was sitting at the kitchen table when he felt flushed and had tunnel vision, this caused him to fall to the ground, he is unsure if he had a moment of loss of consciousness, no blood thinners. Patient is complaining of dizziness when he moves his head. He denies any chest pain, shortness of breath, fever, chills, nausea, vomiting, abdominal pain, vision or hearing changes, neck pain or stiffness, numbness, tingling, weakness, dysuria, hematuria, hematochezia, melena, diarrhea. - Related Data Home Medications Medication Instructions Recorded Confirmed Brinzolamide/Brimonidine Tart 1 drop BOTH EYES BID 10/12/18 08/14/20 [Simbrinza 1%-0.2% Eye Drops] Flunisolide Nasal [place] [Nasalide] 2 spray EA NOSTRIL DAILY 10/12/18 08/14/20 Latanoprost/Pf [Latanoprost 0.005% 1 drop BOTH EYES HS 10/12/18 08/14/20 Eye Drop] Pravastatin Sodium [Pravachol] 20 mg PO HS 10/12/18 08/14/20 Sildenafil Citrate [Viagra] 100 mg PO ONCE 10/12/18 08/14/20 prednisoLONE ACETATE 1% OPHTH 1 drops RIGHT EYE DAILY 10/12/18 08/14/20 [Pred Forte 1%] timoloL maleate [timoloL maleate 1 drop RIGHT EYE BID 10/12/18 08/14/20 0.5% Ophth Gel] Acyclovir 400 mg PO BID 07/09/19 08/14/20 Loratadine [Claritin] 10 mg PO DAILY 07/09/19 08/14/20 Ibuprofen 600 mg PO TID PRN 08/14/20 08/14/20 Previous Rx's Medication Instructions Recorded Ketorolac [Toradol] 10 mg PO Q6HR #15 tab 09/02/21 Meclizine [Antivert] 25 mg PO BID PRN #20 tab 07/09/22 Allergies Allergy/AdvReac Type Severity Reaction Status Date / Time sulfamethoxazole Allergy passed out Verified 07/09/22 15:41 [From Bactrim] trimethoprim [From Bactrim] Allergy passed out Verified 07/09/22 15:41 Review of Systems ROS Statement: Those systems with pertinent positive or pertinent negative responses have been documented in the HPI. ROS Other: All systems not noted in ROS Statement are negative. Past Medical History Past Medical History: Cancer, Eye Disorder, Hyperlipidemia, Seizure Disorder Additional Past Medical History / Comment(s): prostate cancer- removed prostate, hx. colon polyps, skin cancer, possible one time seizure after shoulder surg-on way home had what looked like a seizure History of Any Multi-Drug Resistant Organisms: None Reported Past Surgical History: Hernia Repair, Orthopedic Surgery, Prostate Surgery Additional Past Surgical History / Comment(s): prostatectomy, right cornea transplant, rotator cuff repair Past Anesthesia/Blood Transfusion Reactions: Previous Problems w/ Anesthesia Additional Past Anesthesia/Blood Transfusion Reaction / Comment(s): one time episode of possible seizure on way home after past shoulder surg.-went back to hospital, they didn't really find anything per pt. Past Psychological History: No Psychological Hx Reported Smoking Status: Former smoker Past Alcohol Use History: Occasional Past Drug Use History: Marijuana General Exam Limitations: no limitations General appearance: alert, in no apparent distress Head exam: Present: atraumatic, normocephalic, normal inspection Eye exam: Present: normal appearance, PERRL, EOMI. Absent: scleral icterus, periorbital swelling Pupils: Present: normal accommodation Neck exam: Present: normal inspection, full ROM. Absent: tenderness Respiratory exam: Present: normal lung sounds bilaterally. Absent: respiratory distress, wheezes, rales, rhonchi, stridor Cardiovascular Exam: Present: normal rhythm, bradycardia, normal heart sounds. Absent: systolic murmur, diastolic murmur, rubs, gallop, clicks Neurological exam: Present: alert, oriented X3, CN II-XII intact Expanded Patient oriented to: Present: person, place, time Speech: Present: fluid speech Cranial nerves: EOM's Intact: Normal, Facial Sensation: Normal Sensory exam: Upper Extremity Light Touch: Normal, Lower Extremity Light Touch: Normal Motor strength exam: RUE: 5, LUE: 5, RLE: 5, LLE: 5 Eye Response: (4) open spontaneously Motor Response: (6) obeys commands Verbal Response: (5) oriented Jonah Total: 15 Psychiatric exam: Present: normal affect, normal mood Skin exam: Present: warm, dry, intact, normal color. Absent: rash Course Vital Signs 07/09/22 07/09/22 07/09/22 15:37 19:48 21:00 Temperature 97.8 F 97.4 F L Pulse Rate 50 L 50 L 61 Respiratory 18 18 16 Rate Blood Pressure 171/77 210/86 204/86 O2 Sat by Pulse 99 99 Oximetry 07/09/22 07/09/22 21:28 21:50 Temperature 98.2 F Pulse Rate 60 85 Respiratory 16 17 Rate Blood Pressure 174/90 179/90 O2 Sat by Pulse 97 Oximetry EKG Findings - EKG Comments: EKG Findings:: Sinus bradycardia rate of 57. [place] interval 177. QRS duration 90. QT is a QTc 419/413. No ischemic changes. Medical Decision Making - Medical Decision Making Patient is a 67-year-old male presenting with chief complaint of dizziness. Dizziness has been ongoing since 1 week ago, when patient had a fall. No blood thinners, he is unsure if he had brief loss of consciousness. On examination there are no focal neurological deficits. Heart and lungs are clear to auscultation, patient is slightly bradycardic. No chest pain or shortness of breath. Dizziness is mainly present when patient is moving his head. Lab work shows leukocytosis of 12.8, no anemia. Sodium 134, patient is receiving fluids. Glucose 110. Urine shows no sign of infectious process or bleeding. CT of the brain shows no acute intracranial abnormalities and chest x-ray shows normal chest. Patient received meclizine for dizziness, also received 1 dose of hydralazine due to elevated blood pressure. On reassessment blood pressure has come down to acceptable range, patient is able to ambulate the hallways without dizziness. Will send for meclizine prescription. Patient appears stable for discharge with outpatient follow-up at this time. Follow-up with PCP. Report back to ER with any new or worsening symptoms. Discussed return parameters and answered all questions. Patient conveyed verbal understanding and agreed to the plan. I discussed this case in detail with my attending Dr. Sweeney. - Lab Data Result diagrams: 07/09/22 20:03 07/09/22 20:03 Lab Results 07/09/22 07/09/22 07/09/22 Range/Units 20:03 20:03 20:03 WBC 12.8 H (3.8-10.6) k/uL RBC 4.07 L (4.30-5.90) m/uL Hgb 13.4 (13.0-17.5) gm/dL Hct 40.0 (39.0-53.0) % MCV 98.1 (80.0-100.0) fL MCH 32.9 (25.0-35.0) pg MCHC 33.5 (31.0-37.0) g/dL RDW 15.1 (11.5-15.5) % Plt Count 327 (150-450) k/uL MPV 7.8 Neutrophils % 61 % Lymphocytes % 17 % Monocytes % 10 % Eosinophils % 8 % Basophils % 2 % Neutrophils # 7.8 H (1.3-7.7) k/uL Lymphocytes # 2.2 (1.0-4.8) k/uL Monocytes # 1.3 H (0-1.0) k/uL Eosinophils # 1.1 H (0-0.7) k/uL Basophils # 0.2 (0-0.2) k/uL PT 10.2 (9.0-12.0) sec INR 0.9 (<1.2) Sodium (137-145) mmol/L Potassium (3.5-5.1) mmol/L Chloride (98-107) mmol/L Carbon Dioxide (22-30) mmol/L Anion Gap mmol/L BUN (9-20) mg/dL Creatinine (0.66-1.25) mg/dL Est GFR (CKD-EPI)AfAm (>60 ml/min/1.73 sqM) Est GFR (CKD-EPI)NonAf (>60 ml/min/1.73 sqM) Glucose (74-99) mg/dL Plasma Lactic Acid Jaguar (0.7-2.0) mmol/L Calcium (8.4-10.2) mg/dL Total Bilirubin (0.2-1.3) mg/dL AST (17-59) U/L ALT (4-49) U/L Alkaline Phosphatase (38-126) U/L Total Protein (6.3-8.2) g/dL Albumin (3.5-5.0) g/dL Urine Color Colorless Urine Appearance Clear (Clear) Urine pH 6.0 (5.0-8.0) Ur Specific [place] 1.005 (1.001-1.035) Urine Protein Negative (Negative) Urine Glucose (UA) Negative (Negative) Urine Ketones Negative (Negative) Urine Blood Negative (Negative) Urine Nitrite Negative (Negative) Urine Bilirubin Negative (Negative) Urine Urobilinogen <2.0 (<2.0) mg/dL Ur Leukocyte Esterase Negative (Negative) 07/09/22 07/09/22 Range/Units 20:03 20:03 WBC (3.8-10.6) k/uL RBC (4.30-5.90) m/uL Hgb (13.0-17.5) gm/dL Hct (39.0-53.0) % MCV (80.0-100.0) fL MCH (25.0-35.0) pg MCHC (31.0-37.0) g/dL RDW (11.5-15.5) % Plt Count (150-450) k/uL MPV Neutrophils % % Lymphocytes % % Monocytes % % Eosinophils % % Basophils % % Neutrophils # (1.3-7.7) k/uL Lymphocytes # (1.0-4.8) k/uL Monocytes # (0-1.0) k/uL Eosinophils # (0-0.7) k/uL Basophils # (0-0.2) k/uL PT (9.0-12.0) sec INR (<1.2) Sodium 134 L (137-145) mmol/L Potassium 4.1 (3.5-5.1) mmol/L Chloride 97 L (98-107) mmol/L Carbon Dioxide 23 (22-30) mmol/L Anion Gap 14 mmol/L BUN 5 L (9-20) mg/dL Creatinine 0.71 (0.66-1.25) mg/dL Est GFR (CKD-EPI)AfAm >90 (>60 ml/min/1.73 sqM) Est GFR (CKD-EPI)NonAf >90 (>60 ml/min/1.73 sqM) Glucose 110 H (74-99) mg/dL Plasma Lactic Acid Jaguar 0.8 (0.7-2.0) mmol/L Calcium 9.5 (8.4-10.2) mg/dL Total Bilirubin 0.7 (0.2-1.3) mg/dL AST 23 (17-59) U/L ALT 17 (4-49) U/L Alkaline Phosphatase 110 (38-126) U/L Total Protein 8.0 (6.3-8.2) g/dL Albumin 4.8 (3.5-5.0) g/dL Urine Color Urine Appearance (Clear) Urine pH (5.0-8.0) Ur Specific [place] (1.001-1.035) Urine Protein (Negative) Urine Glucose (UA) (Negative) Urine Ketones (Negative) Urine Blood (Negative) Urine Nitrite (Negative) Urine Bilirubin (Negative) Urine Urobilinogen (<2.0) mg/dL Ur Leukocyte Esterase (Negative) Disposition Clinical Impression: Dizziness Disposition: HOME SELF-CARE Condition: Fair Instructions (If sedation given, give patient instructions): Dizziness (ED) Additional Instructions: Follow-up with PCP. Report back to ER with any new or worsening symptoms. Take medication as prescribed. Prescriptions: Meclizine [Antivert] 25 mg PO BID PRN #20 tab PRN Reason: Vertigo Is patient prescribed a controlled substance at d/c from ED?: No Referrals: [facility],Clinic [Primary Care Provider] - 1-2 days Time of Disposition: 21:48
[2022-07-09 21:54] VITALS: BP 179/90; PULSE 85; RESP 17; TEMP 98.2
== END 2022-07-09 21:57 | disposition home or self-care (01) ==
LOC: EC 14:52
DX: R42 Dizziness and giddiness (principal); E78.5 Hyperlipidemia, unspecified; Z87.891 Personal history of nicotine dependence; F12.90 Cannabis use, unspecified, uncomplicated; Z88.2 Allergy status to sulfonamides; Z79.899 Other long term (current) drug therapy
CPT/HCPCS: 36415; 93005; 80053; 83605; 85025; 85610; 81003; 71046; 70450; 99284; 96374; 96361; J0360

== ENCOUNTER → 2022-08-10 | Outpatient (CLI) | payer OTHER ==
--- NOTE | 2022-08-11 09:50 | US ---
EXAMINATION TYPE: US carotid duplex BILAT DATE OF EXAM: 08/10/2022 COMPARISON: US 2018 CLINICAL HISTORY: R42 DIZZINESS. Hyperlipidemia. Prior smoker. Dizziness. TECHNIQUE: Carotid duplex ultrasound examination. Indirect Doppler criteria was utilized. FINDINGS: EXAM MEASUREMENTS: RIGHT: Peak Systolic Velocity (PSV) cm/sec ----- Right CCA: 76.5 ----- Right ICA: 172.6 bulb measurement. ----- Right ECA: 164.8 ICA/CCA ratio: 2.3 RIGHT: End Diastole cm/sec ----- Right CCA: 0.0 ----- Right ICA: 13.0 ----- Right ECA: 0.0 LEFT: Peak Systolic Velocity (PSV) cm/sec ----- Left CCA: 105.5 ----- Left ICA: 118.5 ----- Left ECA: 174.6 ICA/CCA ratio: 1.1 LEFT: End Diastole cm/sec ----- Left CCA: 15.4 ----- Left ICA: 29.2 ----- Left ECA: 0.0 VERTEBRALS (direction of flow): Right Vertebral: Antegrade Left Vertebral: Antegrade Rhythm: Normal SENIOR JAVA PROGRAMMER NOTES: Elevated velocities noted within right CCA, right bulb, right ICA, right ECA, and left ECA. Plaque seen within bilateral CCA and bilateral bulb. Grayscale, color Doppler, spectral Doppler imaging performed the carotid arteries. Waveform analysis does not show significant stenosis of the internal carotid artery on the left. IMPRESSION: There is elevated velocity and ICA to CCA ratio on the right without elevated end-diasto lic velocity, somewhat equivocal, carotid CTA or MRA could be performed for better evaluation. No hemodynamic significant stenosis of the proximal internal carotid artery on the left, indirect niko surement of carotid stenosis. Criteria for Assigning % of Stenosis / Diameter reduction (Estimation based on the indirect measurements of the internal carotid artery velocities (ICA PSV). 1. Normal (no stenosis)=ICA PSV < 125 cm/s: ratio < 2.0: ICA EDV<40 cm/s. 2. Less than 50% stenosis=ICA PSV < 125 cm/s: ratio < 2.0: ICA EDV<40 cm/s. 3. 50 to 69% stenosis=ICA PSV of 125 to 230 cm/s: ration 2.0 ? 4.0: ICA EDV 40-100 cm/s. 4. Greater than 70% stenosis to near occlusion= ICA PSV > 230 cm/s: ratio > 4.0: ICA EDV > 100 cm/s. 5. Near occlusion= ICA PSV velocities may be low or undetectable: variable ratio and ICA EDV. 6. Total occlusion=unable to detect flow.
== END | disposition home or self-care (01) ==
LOC: RADUSWWP 16:48
DX: E78.5 Hyperlipidemia, unspecified (principal); R42 Dizziness and giddiness; Z87.891 Personal history of nicotine dependence
CPT/HCPCS: 93880

== ENCOUNTER → 2022-10-06 | Outpatient (CLI) | payer OTHER ==
[2022-10-06 13:00] VITALS: BP 195/84; PULSE 60; RESP 18; TEMP 98.4
--- NOTE | 2022-10-06 14:26 | P.PAINPG ---
PQRS Measure Charge Sheet Comment: HISTORY OF PRESENT ILLNESS: 67 yr old male as a referral from the [facility] presents today w severe and chronic LBP secondary to for evaluation. Pt states pain level is at /10 in intensity, constant, localized in the R lower back, throbbing/ burning in character w shooting pain towards the RLE, R ankle and R foot. Pain is provoked by standing/ walking for periods of 20 min or more. Pain is alleviated by medications (Ibu), sitting, LESIs in the past and rest. PMH: Prostate CA, Eye Disorder, Hyperlipidemia, Seizure Disorder PSH: Colonoscopy w Polypectomy (2020), Hernia Repair, Prostatectomy, R Corneal Transplant, RCT Repair SH: Former tobacco user, Occasional ETOH use, Cannabis use. FH: Non contributory All: See list Meds: See list REVIEW OF ORGAN SYSTEMS: CONSTITUTIONAL: No fevers or chills. No recent weight loss. NEUROLOGICAL: + numbness and tingling along the distal extremities. No seizure disorders or headaches. MUSCULOSKELETAL: + pain PSYCHIATRIC: Denies current depression or suicidal thoughts. Physical Examinations : Constitutional : Cooperative , not in acute distress . Neurologic : Cranial nerve II to XII intact. No focal neurological deficits. Psychiatric : alert & oriented x 3. Matching mood & appropriate affect. Judgment & insight intact. Musculoskeletal : Cervical Spine Motor strength in the deltoid and biceps: Normal right side. Normal Left side Motor strength biceps and the wrist extensors: Normal right side . Normal left side Motor strength in the triceps muscle: Normal right side. Normal left side Deep tendon reflexes: Normal at the biceps. Normal at Brachioradialis. Normal at triceps Vertebral body tenderness to deep palpation over Cervical facet loading test: positive bilaterally Spurling test: positive bilaterally Neck distraction test: positive bilaterally Kellen sign: positive bilaterally Lumbar spine Motor strength lower extremities ,thigh and legs 5/5 Right side , 5/5 Left side Deep tendon reflexes : Normal Knee Jerk. Normal Ankle Jerk Vertebral body tenderness over L4 Lumbar facet Loading Test: positive Right / positive Left Range of motion of the lumbar spine Flexion 30 degrees, extension 10 degrees Straight Leg Raise test: Left/ Right positive at degree Adele test: positive right / positive left. Severe tenderness over the Sacroiliac joint on the Right / Left sides Gaenslen test: positive bilaterally Seated flexion test: positive bilaterally. Sacral spine : Severe tenderness over the Sacroiliac joint: right side / left side Range of motion: Flexion of the lumbar spine <60 degrees Range of motion: Extension of the lumbar spine <20 degrees Gaenslen's Test positive Olegario's Test positive Adele test: positive right side / left side Thigh Thrust Test Sacral Thrust Test Imaging: MRI without contrast of the lumbar spine from 07/15/21 reviewed Assessment/ Plan : Lumbar DDD Recommendation of R paramedian SYLVIA L4-L5. May need a series of injections, up to 3 within a 6 mo period, for optimal pain relief. Risks, benefits of procedure discussed and patient verbalized understanding. Admits to aspirin or anti- coagulant use or medical history of diabetes. Protocol for discontinuation/ continuation of medications [place] procedure discussed. All questions answered. I have spent greater than 30 minutes on patient care today. Dr Louis was a vailable by phone for the evaluation of this patient. The time was used to review the medical records including relevant urine studies and Prescription history (MAPs), review of the available imaging, evaluation and examination of the patient, coordination of care with the medical staff and if applicable referring physicians, as well as creation of the medical record PQRS Narrative: Smoking Status Former smoker Home Medications: Ambulatory Orders Brinzolamide/Brimonidine Tart [Simbrinza 1%-0.2% Eye Drops] 1 drop BOTH EYES BID 10/12/18 Flunisolide Nasal [place] [Nasalide] 2 spray EA NOSTRIL DAILY 10/12/18 Latanoprost/Pf [Latanoprost 0.005% Eye Drop] 1 drop BOTH EYES HS 10/12/18 Pravastatin Sodium [Pravachol] 20 mg PO HS 10/12/18 Sildenafil Citrate [Viagra] 100 mg PO ONCE 10/12/18 prednisoLONE ACETATE 1% OPHTH [Pred Forte 1%] 1 drops RIGHT EYE DAILY 10/12/18 timoloL maleate [timoloL maleate 0.5% Ophth Gel] 1 drop RIGHT EYE BID 10/12/18 Acyclovir 400 mg PO BID 07/09/19 Loratadine [Claritin] 10 mg PO DAILY 07/09/19 Ibuprofen 600 mg PO TID PRN 08/14/20 Ketorolac [Toradol] 10 mg PO Q6HR #15 tab 09/02/21 Meclizine [Antivert] 25 mg PO BID PRN #20 tab 07/09/22 Controlled Substance Measures - Controlled Substance Measures Is patient prescribed a controlled substance at discharge?: No
== END ==
LOC: PNWHC3 12:25
PROVIDERS: ATTEND Specialist
DX: M51.36 Other intervertebral disc degeneration, lumbar region (principal); E78.5 Hyperlipidemia, unspecified; Z88.2 Allergy status to sulfonamides; Z88.1 Allergy status to other antibiotic agents; Z87.891 Personal history of nicotine dependence
CPT/HCPCS: 99211

== ENCOUNTER 2022-11-09 12:11 | Day surgery (SDC) | payer OTHER ==
[2022-11-04 15:37] VITALS: BMI 24.3
[2022-11-09] MEDS ORDERED: LIDOCAINE 1% (10MG/ML) FOR IV START INTRADERMA PRN (12:25)
[2022-11-09] MEDS ORDERED: LACTATED RINGERS 1,000 ML IV SCH (12:25)
[2022-11-09] MEDS ORDERED: methylPREDNISolone ACETATE 80 MG/ML 1 ML VIAL ONE (12:41)
[2022-11-09] MEDS ORDERED: IOPAMIDOL M200 10 ML VIAL ONE (12:41)
[2022-11-09 12:42] VITALS: RESP 16; TEMP 97
--- NOTE | 2022-11-09 12:54 | P.PCN ---
Date of Procedure: 11/09/22 Procedure(s) Performed: PREOPERATIVE DIAGNOSIS: 1- Lumbar Degenerative Disc Diseases 2-Lumbar Radiculopathy. POSTOPERATIVE DIAGNOSIS: Same as preop diagnosis. PROCEDURE 1. Lumbar epidural steroid injection under fluoroscopic guidance at the L4-5 level. (Fluoroscopy imaging was available in radiology department) 2. Lumbar epidurogram. ANESTHESIA: none EBL: Minimal PROCEDURE INDICATION: The patient with low back pain and radiculitis symptoms unresponsive to conservative treatment. Fluoroscopy was used to optimize visualization of the needle placement and to maximize safety. PROCEDURE DESCRIPTION / TECHNIQUE: The patient was seen and identified in the preoperative area. Risks, benefits, complications including but not limited to infections ,bleeding ,allergic reaction to the medications ,nerve damage and not complete pain releife , and alternatives were discussed with the patient. The patient agreed to proceed with the procedure and signed the consent. IV was started, and vital signs were stable. Patient was taken to the OR and time out was completed. The patient was placed in the prone position on procedure table and a pillow was placed under the abdomen to reduce lumbar lordosis. The lumbosacral area was prepped and draped in the usual sterile fashion.ere closely monitored during the procedure. Vital signs was monitered during the entire procedure. Using anterior-posterior fluoroscopy, the L4-5 ( right paramedial ) interlaminar space was identified and the skin over this site was marked and then infiltrated with 1% lidocaine subcutaneously. Subsequently, a 20-gauge Tuohy epidural needle was inserted and advanced toward the epidural space using the ``Loss of resistance technique and guided by AP and lateral fluoroscopy. The correct needle position in the epidural space was verified with the injection of 2 mL of the water soluble contrast dye Isovue 200 contrast and observing an excellent epidurogram with the epidural spread of the dye, after negative aspiration for blood and CSF and in the absence of paresthesias. Again after negative aspiration, a 6 ml mixture containing 60 mg of Depo-medrol ( Preservetive Free ), and 2 ml of preservative free Normal Saline, and 2 ml of preservative free lidocaine 1% solution was injected and a washout of epidurogram was seen. Needle was withdrawn intact, skin was cleansed, and bandages were applied. COMPLICATIONS: None DISPOSITION / PLANS: The patient was placed in a supine position and transferred to the recovery area in a stable condition for observation. There was no evidence of lower extremity motor or sensory deficit after the procedure. Patient was discharged from the recovery room after meeting discharge criteria. Home discharge instructions were given to the patient by the staff. The patient was reexamined prior to discharge. The patient will schedule a follow up in the clinic in 2-4 weeks.
[2022-11-09 13:00] VITALS: PULSE 59
[2022-11-09 13:08] VITALS: BP 182/77
--- NOTE | 2022-11-09 13:58 | FL ---
EXAMINATION TYPE: FL guided pain mgmt statistic DATE OF EXAM: 11/09/2022 CLINICAL HISTORY: Low back pain. TECHNIQUE: Fluoroscopy. COMPARISON: None. FINDINGS: Fluoroscopic guidance was provided during pain relief procedure performed by Dr. Louis . A total of 3 seconds of fluoroscopic time was utilized during the procedure and two spot images ar e acquired. Images acquired shows needle localization at the lower lumbar spine with contrast inject ion. IMPRESSION: As Above.
== END 2022-11-09 13:24 | disposition home or self-care (01) ==
LOC: ORPAIN 12:11
PROVIDERS: ATTEND Specialist
DX: M51.16 Intervertebral disc disorders with radiculopathy, lumbar region (principal); Z88.2 Allergy status to sulfonamides
CPT/HCPCS: 62323

== ENCOUNTER 2023-01-11 12:51 | Day surgery (SDC) | payer OTHER ==
[2023-01-11] MEDS ORDERED: LACTATED RINGERS 1,000 ML IV SCH (13:01)
[2023-01-11] MEDS ORDERED: LIDOCAINE 1% (10MG/ML) FOR IV START INTRADERMA PRN (13:01)
[2023-01-11 13:23] VITALS: TEMP 97.4
[2023-01-11] MEDS ORDERED: IOPAMIDOL M200 10 ML VIAL ONE (13:41)
[2023-01-11] MEDS ORDERED: methylPREDNISolone ACETATE 80 MG/ML 1 ML VIAL ONE (13:41)
--- NOTE | 2023-01-11 13:59 | P.PCN ---
Date of Procedure: 01/11/23 Procedure(s) Performed: PREOPERATIVE DIAGNOSIS: 1- Lumbar Degenerative Disc Diseases 2-Lumbar Radiculopathy. POSTOPERATIVE DIAGNOSIS: Same as preop diagnosis. PROCEDURE 1. Lumbar epidural steroid injection under fluoroscopic guidance at the L4-5 level. (Fluoroscopy imaging was available in radiology department) 2. Lumbar epidurogram. ANESTHESIA: none EBL: Minimal PROCEDURE INDICATION: The patient with low back pain and radiculitis symptoms unresponsive to conservative treatment. Fluoroscopy was used to optimize visualization of the needle placement and to maximize safety. PROCEDURE DESCRIPTION / TECHNIQUE: The patient was seen and identified in the preoperative area. Risks, benefits, complications including but not limited to infections ,bleeding ,allergic reaction to the medications ,nerve damage and not complete pain releife , and alternatives were discussed with the patient. The patient agreed to proceed with the procedure and signed the consent. IV was started, and vital signs were stable. Patient was taken to the OR and time out was completed. The patient was placed in the prone position on procedure table and a pillow was placed under the abdomen to reduce lumbar lordosis. The lumbosacral area was prepped and draped in the usual sterile fashion.ere closely monitored during the procedure. Vital signs was monitered during the entire procedure. Using anterior-posterior fluoroscopy, the L4-5 ( right paramedial ) interlaminar space was identified and the skin over this site was marked and then infiltrated with 1% lidocaine subcutaneously. Subsequently, a 20-gauge Tuohy epidural needle was inserted and advanced toward the epidural space using the ``Loss of resistance technique and guided by AP and lateral fluoroscopy. The correct needle position in the epidural space was verified with the injection of 2 mL of the water soluble contrast dye Isovue 200 contrast and observing an excellent epidurogram with the epidural spread of the dye, after negative aspiration for blood and CSF and in the absence of paresthesias. Again after negative aspiration, a 6 ml mixture containing 60 mg of Depo-medrol ( Preservetive Free ), and 2 ml of preservative free Normal Saline, and 2 ml of preservative free lidocaine 1% solution was injected and a washout of epidurogram was seen. Needle was withdrawn intact, skin was cleansed, and bandages were applied. COMPLICATIONS: None DISPOSITION / PLANS: The patient was placed in a supine position and transferred to the recovery area in a stable condition for observation. There was no evidence of lower extremity motor or sensory deficit after the procedure. Patient was discharged from the recovery room after meeting discharge criteria. Home discharge instructions were given to the patient by the staff. The patient was reexamined prior to discharge. The patient will schedule a follow up in the clinic in 2-4 weeks.
[2023-01-11 14:07] VITALS: RESP 16
--- NOTE | 2023-01-11 14:14 | FL ---
Fluoroscopy History: EL Khan. 1 sec fl. .[id number] DAP
[2023-01-11 14:24] VITALS: BP 192/94; PULSE 58
== END 2023-01-11 14:29 | disposition home or self-care (01) ==
LOC: ORPAIN 12:51
PROVIDERS: ATTEND Specialist
DX: M51.16 Intervertebral disc disorders with radiculopathy, lumbar region (principal); Z88.2 Allergy status to sulfonamides; Z88.8 Allergy status to other drugs, medicaments and biological substances
CPT/HCPCS: 62323

== ENCOUNTER → 2024-03-29 | Outpatient (CLI) | payer OTHER ==
--- NOTE | 2024-04-08 12:31 | PE ---
EXAMINATION TYPE: PET CT fusion skull to thigh DATE OF EXAM: 03/29/2024 COMPARISON: No pertinent comparison Prior PET/CT: No prior dislocation HISTORY: Prostate cancer TECHNIQUE: Following the intravenous administration of 5.67 mCi of gallium 28 PSMA, whole body image s are performed from the skull base to the midthigh. Images are reviewed on the computer in the gio nal, axial, and sagittal planes. Reconstructed rotating images are created on independent workstatio n and reviewed on the computer. A localization and attenuation correction CT is performed in conjun ction with the PET scan. DLP: 425.17 mGycm SCAN: Subsequent Scan FINDINGS: NECK: Normal uptake is within salivary glands. No suspicious uptake within the neck is evident. THORAX: No abnormal uptake ABDOMEN: No abnormal uptake PELVIS: No suspicious uptake. Prostate is not identified and abnormal uptake suggest the primary location is not identified. Correl ate with the patient's surgical history. OSSEOUS STRUCTURES: No suspicious uptake LOCALIZATION CT: Coronary artery ossification is noted. Prostate is not clearly identified. COMPARISON: None IMPRESSION: 1. No suspicious uptake to suggest metastatic prostate cancer.
== END | disposition home or self-care (01) ==
LOC: RADPETMAIN 09:58
PROVIDERS: ATTEND Urology
DX: C61 Malignant neoplasm of prostate (principal)
CPT/HCPCS: 78815; A9596